=== PATIENT | male | born 1940 | race African-American/Black ===

== ENCOUNTER 2019-01-09 03:58 | Emergency (ER) | payer OTHER ==
[~2019-01-09] VITALS: Ht 182.9 cm; Wt 59.0 kg
[2019-01-09] MEDS ORDERED: ONDANSETRON HCL 4MG/2ML INJ IV STA (04:19)
[2019-01-09] MEDS ORDERED: SODIUM CHLORIDE 0.9% 1000ML BAG (SEPSIS BOLUS) IV ONE (04:30)
[2019-01-09 04:37] LABS: BG BASE EXCESS -9.1 mmol/L (-2.0-2.0); BG CARBOXYHEMOGLOBIN 0.6 % (0.5-1.5); BG DEOXYHEMOGLOBIN 10.1 % (0.0-5.0); BG FRACTION INSPIRED OXYGEN 21; BG HCO3 ACT 15.4 mmol/L (22.0-26.0); BG METHEMOGLOBIN 0.4 % (0.0-1.5); BG OXYGEN SATURATION 89.8 % (92.0-98.5); BG OXYHEMOGLOBIN 88.9 % (94.0-97.0); BG PH 7.359 (7.350-7.450); BG PO2 68.4 mmHg (75.0-100.0); BG SAMPLE SITE RIGHT BRACHIAL; BG TOTAL HEMOGLOBIN 7.6 g/dL (12.0-18.0); BG VENT MODE ROOM AIR
[2019-01-09] MEDS ORDERED: PIPERACILLIN/TAZ 3.375G PREMIX 50 ML IV ONE (05:15)
[2019-01-09] MEDS ORDERED: VANCOMYCIN 1 G PREMIX 200 ML IV ONE (05:15)
[2019-01-09 05:34] LABS: CHLORIDE 109 mEq/L (98-107)
[2019-01-09 05:36] LABS: INR 1.3; PROTHROMBIN TIME 13.4 sec (9.1-11.1)
[2019-01-09 05:58] LABS: HEMATOCRIT. 24.5 % (42.0-52.0); HEMOGLOBIN. 7.8 g/dL (14.0-18.0); MEAN CORPUSCULAR HEMOGLOBIN 20.3 pg (28.0-32.0); RED BLOOD CELL COUNT 3.83 mill/uL (4.7-6.1); RED CELL DISTRIBUTION WIDTH 17.6 % (11.6-14.6)
[2019-01-09 06:38] LABS: PLATELET 148 x1000/uL (130-400)
[2019-01-09 06:44] LABS: NUCLEATED RED BLOOD CELLS 12 /100 WBC
[2019-01-09 06:45] LABS: PLATELET ESTIMATE NORMAL
[2019-01-09 07:17] LABS: CLARITY URINE CLEAR (CLEAR); COLOR URINE YELLOW (YELLOW); KETONES URINE NEGATIVE (NEGATIVE); LEUKOCYTE ESTERASE URINE NEGATIVE (NEGATIVE); NITRITE URINE NEGATIVE (NEGATIVE); OCCULT BLOOD URINE 1+ (NEGATIVE); PH URINE 5.5 (4.5-8.0); PROTEIN URINE TRACE (NEGATIVE); SPECIFIC GRAVITY URINE 1.014 (1.005-1.030); UROBILINOGEN URINE 0.2 E.U./dL (0.2-1.0)
[2019-01-09] MEDS ORDERED: ACETAMINOPHEN 325MG TABLET PO PRN (08:45)
[2019-01-09] MEDS ORDERED: CLONIDINE 0.1MG TABLET PO PRN (08:45)
[2019-01-09] MEDS ORDERED: ONDANSETRON HCL 4MG/2ML INJ IV PRN (08:45)
[2019-01-09] MEDS ORDERED: PIPERACILLIN/TAZOBACTAM 3.375GM/50ML PREMIX IV ONE (08:45)
[2019-01-09] MEDS ORDERED: SODIUM BICARBONATE 7.5% 0.9 MEQ/ML 50ML SYR IV ONE (09:26)
[2019-01-09] MEDS ORDERED: EPINEPHRINE 0.1MG/ML (1:10,000) 10ML SYR ONE ×3 (09:26→15:17)
[2019-01-09 10:01] LABS: BG BASE EXCESS -22.6 mmol/L (-2.0-2.0); BG CARBOXYHEMOGLOBIN 0.8 % (0.5-1.5); BG DEOXYHEMOGLOBIN 2.7 % (0.0-5.0); BG HCO3 ACT 8.3 mmol/L (22.0-26.0); BG METHEMOGLOBIN 0.3 % (0.0-1.5); BG OXYGEN SATURATION 97.3 % (92.0-98.5); BG OXYHEMOGLOBIN 96.2 % (94.0-97.0); BG PCO2 41.8 mmHg (35.0-45.0); BG PH 6.914 (7.350-7.450); BG PO2 156.7 mmHg (75.0-100.0); BG SAMPLE SITE RIGHT RADIAL; BG TIDAL VOLUME(mL) 500 mL; BG TOTAL HEMOGLOBIN 6.9 g/dL (12.0-18.0); BG VENT MODE VENT - A/C; BG VENT RATE 20 set
[2019-01-09 10:11] LABS: TOTAL IRON BINDING CAPACITY 253 ug/dL (250-450)
[2019-01-09 10:12] LABS: HDL CHOLESTEROL 38 mg/dL (40-59); LDL CHOLESTEROL 25 mg/dL (5-100)
[2019-01-09 10:14] LABS: T4 FREE 0.49 ng/dL (0.76-1.46)
[2019-01-09 10:15] LABS: CREATINE KINASE MB FRACTION 50.8 ng/mL (0.5-3.6)
[2019-01-09] MEDS ORDERED: NOREPINEPHRINE 4MG/250ML PMX 250 ML IV NR (10:15)
[2019-01-09] MEDS ORDERED: NOREPINEPHRINE 4 MG in DEXT 5% WATER 246 ML IV ONE (10:15)
[2019-01-09 10:24] LABS: CREATINE KINASE 1575 IU/L (39-308)
[2019-01-09] MEDS ORDERED: NOREPINEPHRINE 4 MG in DEXTROSE 5% WATER 250 ML IV PRN (10:30)
[2019-01-09] MEDS ORDERED: LORAZEPAM 2MG/ML CPJ IV ONE (10:30)
[2019-01-09 10:31] LABS: CHLORIDE 111 mEq/L (98-107)
[2019-01-09 10:59] LABS: *AMPHETAMINES SCREEN URINE NEGATIVE (NEGATIVE)
[2019-01-09 11:00] LABS: *BARBITURATES SCREEN URINE NEGATIVE (NEGATIVE); *BENZODIAZEPINES SCREEN URINE NEGATIVE (NEGATIVE); *COCAINE SCREEN URINE NEGATIVE (NEGATIVE); METHADONE URINE SCREEN NEGATIVE (NEGATIVE); OPIATES URINE SCREEN NEGATIVE (NEGATIVE); PHENCYCLIDINE URINE SCREEN NEGATIVE (NEGATIVE)
[2019-01-09] MEDS ORDERED: MIDAZOLAM HCL 100 MG in DEXT 5% WATER 80 ML IV PRN ×4 (11:00)
[2019-01-09] MEDS ORDERED: DOPAMINE 400MG/250ML PREMIX 250 ML IV PRN (11:00)
[2019-01-09] MEDS ORDERED: MEROPENEM 1,000 MG in SODIUM CHLORIDE 0.9% 100 ML IV SCH (11:00)
[2019-01-09] MEDS ORDERED: FENTANYL CITRATE/PF 500 MCG in SODIUM CHLORIDE 0.9% 40 ML IV PRN (11:00)
[2019-01-09 11:01] LABS: CANNABINOID URINE SCREEN NEGATIVE (NEGATIVE)
[2019-01-09] MEDS ORDERED: ATROPINE SULFATE 1MG/10ML SYR ONE (11:59)
[2019-01-09] MEDS ORDERED: ATROPINE SULFATE 0.4MG/ML VIAL IV ONE (12:00)
[2019-01-09] MEDS ORDERED: EPINEPHRINE 1 MG in SODIUM CHLORIDE 0.9% 249 ML IV PRN (12:00)
[2019-01-09] MEDS ORDERED: SODIUM BICARBONATE 100 MEQ in DEXTROSE 5% WATER 1,000 ML IV SCH (12:00)
[2019-01-09] MEDS ORDERED: SODIUM BICARBONATE 8.4% 1 MEQ/ML 50ML SYR IV NR (12:00)
[2019-01-09] MEDS ORDERED: ATROPINE SULFATE 0.1MG/ML 10ML DISP.SYRIN IV ONE (12:45)
[2019-01-09 13:03] VITALS: BP 82/52
[2019-01-09] MEDS ORDERED: AMIODARONE HCL 150 MG in DEXT 5% WATER 100 ML IV ONE (13:15)
[2019-01-09] MEDS ORDERED: ETOMIDATE 2MG/ML 10ML VIAL IV ONE (13:31)
[2019-01-09] MEDS ORDERED: SUCCINYLCHOLINE CHLORIDE 200MG/10ML IV ONE (13:31)
[2019-01-09] MEDS ORDERED: SODIUM BICARBONATE 8.4% 1 MEQ/ML 50ML SYR IV ONE (13:45)
[2019-01-10] MEDS ORDERED: PANTOPRAZOLE SODIUM 40 MG/VIAL IV SCH (09:00)
== END 2019-01-09 17:29 | disposition expired ==
LOC: ER 03:58 → EDBEDREQ 05:17 → EDBEDREQSVC 05:17 → EDBEDREQTM 05:17 → ER 17:29 → CANBEDREQ 01-10 01:53
DX: T68.XXXA Hypothermia, initial encounter (principal); A40.3 Sepsis due to Streptococcus pneumoniae; A41.52 Sepsis due to Pseudomonas; R65.21 Severe sepsis with septic shock; I46.9 Cardiac arrest, cause unspecified; G92 Toxic encephalopathy; J96.01 Acute respiratory failure with hypoxia; I10 Essential (primary) hypertension; E03.9 Hypothyroidism, unspecified; M62.82 Rhabdomyolysis; R00.1 Bradycardia, unspecified; I45.81 Long QT syndrome; E87.2 Acidosis; D72.825 Bandemia; F10.21 Alcohol dependence, in remission; E11.9 Type 2 diabetes mellitus without complications; Y90.9 Presence of alcohol in blood, level not specified
CPT/HCPCS: 31500; 36415; 36556; 36600; 70450; 71045; 71250; 74176; 76770; 80053; 80061; 80305; 80320; 81003; 82140; 82375; 82550; 82553; 82607; 82728; 82746; 82805; 82962; 83540; 83550; 83605; 83880; 84145; 84439; 84443; 84481; 84484; 85025; 85610; 86850; 86900; 86901; 87040; 87086; 92950; 93005; 94002; 96361; 96365; 96366; 96367; 96375; 99291; J0282; J0330; J0461; J1265; J2060; J2405; J2543; J3370; J3490; J7030; J7060; Z7610